=== PATIENT | female | born 1965 | race Two or more races ===

== ENCOUNTER 2020-12-07 16:05 | Emergency (ER) | payer OTHER ==
[~2020-12-07] VITALS: Ht 154.9 cm; Wt 62.6 kg
[2020-12-07 16:11] VITALS: BP 128/80
== END 2020-12-07 17:55 | disposition home or self-care (01) ==
LOC: ER 16:05
DX: R13.10 Dysphagia, unspecified (principal); R07.89 Other chest pain; R07.0 Pain in throat
CPT/HCPCS: 70490

== ENCOUNTER 2021-05-14 11:37 | Emergency (ER) | payer OTHER ==
[~2021-05-14] VITALS: Ht 165.1 cm; Wt 62.6 kg
[2021-05-14 12:03] LABS: Basophils # (auto) 0 10 ^3/uL (0-0.2); Basophils % (auto) 0.4 % (0.0-2.0); Eosinophils # (auto) 0.2 10 ^3/uL (0-0.8); Eosinophils % (auto) 2.7 % (0.0-7.0); Hematocrit 38.3 % (36.0-46.0); Hemoglobin 13.4 g/dL (12.2-16.2); Lymphocytes # (auto) 2.7 10 ^3/uL (0.4-5.4); Lymphocytes % (auto) 43.4 % (10.0-50.0); Mean Corpuscular Hemoglobin 29.8 pg (28.0-32.0); Mean Corpuscular Hgb Conc. 35.1 g/dL (32.0-36.0); Monocytes # (auto) 0.5 10 ^3/uL (0-1.3); Monocytes % (auto) 7.8 % (0.0-12.0); Neutrophils # (auto) 2.8 10 ^3/uL (1.6-8.6); Neutrophils % (auto) 45.7 % (37.0-80.0); Nucleated Red Blood Cells % 0.1 %; Red Cell Distribution Width 13.3 % (11.8-14.3); White Blood Cell 6.2 10^3/uL (4.4-10.8)
[2021-05-14 12:37] LABS: Chloride 106 mmol/L (98-107); Potassium 4.1 mmol/L (3.5-5.1); Sodium 137 mmol/L (136-145)
[2021-05-14 12:46] LABS: Alanine Aminotransferase 24 U/L (13-56); Albumin 3.2 g/dL (3.4-5.0); Alkaline Phosphatase 95 U/L (45-117); Anion Gap 3 (5-15); Aspartate Aminotransferase 15 U/L (15-37); BUN/Creatinine Ratio 22.8; Bilirubin, Total 0.2 mg/dL (0.2-1.0); Blood Urea Nitrogen 13 mg/dL (7-18); Calcium 8.8 mg/dL (8.5-10.1); Carbon Dioxide 28 mmol/L (21-32); GFR African American 142 mL/min; GFR Non-African American 117 mL/min; Glucose 91 mg/dL (74-106); Magnesium 2.2 mg/dL (1.6-2.6); Total Protein 7.7 g/dL (6.4-8.2)
[2021-05-14 13:24] VITALS: BP 128/82
[2021-05-14 13:33] LABS: Urine Bacteria NONE SEEN /hpf (None Seen); Urine Blood Negative /uL (Negative); Urine Specific Gravity 1.006 (1.001-1.035); Urine WBC <1 /hpf (0 - 5)
== END 2021-05-14 13:25 | disposition home or self-care (01) ==
LOC: ER 11:37
DX: R07.89 Other chest pain (principal); E78.5 Hyperlipidemia, unspecified; Z88.5 Allergy status to narcotic agent
CPT/HCPCS: 36415; 71046; 80053; 81001; 83735; 84484; 85025; 85379; 93005

== ENCOUNTER 2023-07-12 09:04 | Emergency (ER) | payer OTHER ==
[~2023-07-12] VITALS: Ht 154.9 cm; Wt 65.9 kg
[2023-07-12 10:50] LABS: Basophils # (auto) 0 10 ^3/uL (0-0.2); Basophils % (auto) 0.3 % (0.0-2.0); Eosinophils # (auto) 0.1 10 ^3/uL (0-0.8); Hematocrit 41.6 % (36.0-46.0); Lymphocytes # (auto) 2.6 10 ^3/uL (0.4-5.4); Lymphocytes % (auto) 43.1 % (10.0-50.0); Mean Corpuscular Hemoglobin 29.1 pg (28.0-32.0); Mean Corpuscular Hgb Conc. 33.6 g/dL (32.0-36.0); Mean Corpuscular Volume 86.6 fL (80.0-100.0); Monocytes # (auto) 0.3 10 ^3/uL (0-1.3); Neutrophils % (auto) 49.6 % (37.0-80.0); Nucleated Red Blood Cells % 0.1 %; Red Blood Cells 4.81 10^6/uL (4.0-5.20); White Blood Cell 6.1 10^3/uL (4.4-10.8)
[2023-07-12 11:15] LABS: Alanine Aminotransferase 34 U/L (7-40); Albumin 4.2 g/dL (3.2-4.8); Alkaline Phosphatase 100 U/L (46-116); Anion Gap 6 (5-15); Aspartate Aminotransferase 26 U/L (13-40); BUN/Creatinine Ratio 12.9 (10.0-20.0); Bilirubin, Total 0.6 mg/dL (0.2-1.0); Blood Urea Nitrogen 8 mg/dL (9-23); Calcium 9.5 mg/dL (8.5-10.1); Carbon Dioxide 26 mmol/L (20-30); Chloride 109 mmol/L (98-107); Glucose 136 mg/dL (74-106); Potassium 3.8 mmol/L (3.5-5.1); Sodium 141 mmol/L (136-145); Total Protein 7.3 g/dL (5.7-8.2)
[2023-07-12 11:36] LABS: Erythrocyte Sedimentation Rate 8 mm/hr (0-20)
[2023-07-12] MEDS ORDERED: NAPR-1334 PO (12:04)
[2023-07-12] MEDS ORDERED: CYCL-837 PO (12:04)
[2023-07-12 12:43] VITALS: BP 119/75; PULSE 83; RESP 18; TEMP 97.9; O2SAT 98
== END 2023-07-12 12:43 | disposition home or self-care (01) ==
LOC: ER 09:04
DX: R51.9 Headache, unspecified (principal); M54.2 Cervicalgia; E78.5 Hyperlipidemia, unspecified
CPT/HCPCS: 36415; 70450; 72125; 80053; 85025; 85652; 93005